=== PATIENT | male | born 1985 | race Caucasian/White ===

== ENCOUNTER 2017-12-15 12:37 | Emergency (ER) | payer OTHER, SELFPAY ==
--- NOTE | 2017-12-15 12:37 | DT_ITS ---
This patient was seen during an EMR downtime December 08, 2017 - December 15, 2017. This patient may have a combination of paper and electronic documentation or all paper documentation. All documentation is viewable within the e-chart portion of [facility] for each patient visit.
[2017-12-15 12:38] VITALS: BP 115/76; PULSE 47; RESP 16; TEMP 36.3; O2SAT 98; BMI 25.8
--- NOTE | 2017-12-15 13:12 | ED.VIS.GEN ---
History of Present Illness Chief Complaint: Lower Extremity Injury Informant: Patient Onset: Weeks - 1 Context: Gradual Onset - walking about 3 miles Timing: Continuous Quality: sore Location: Left knee Current Severity: Moderate Maximum Severity: Moderate Worsened by: Walking, end of a work shift where he is on his feet and walking a lot Relieved by: Rest Associated Symptoms: None Narrative: Patient states he had a vehicle breakdown and had to walk about 3 miles, his knee started bothering him during that, gradually worsening by the end of it. He has been using a soft knee brace over his left knee since then, and went hiking yesterday, exacerbating the pain. Prior similar symptoms: No Past Medical History - Allergies and Home Meds Allergies/Adverse Reactions: Allergies No Known Allergies Allergy (Verified 08/31/16 20:58) Primary Care Physician: Care Physician,No Primary [Primary Care Provider] - Past Medical History: None Surgical History: no surgical history Smoking Status: Never smoker Review of Systems Musculoskeletal: Reports: Extremity Pain - Left knee. Denies: Myalgias, Back pain, Swelling Neurological: Denies: Weakness, Parasthesia, Numbness Physical Exam Vital Signs/Narrative: Vital Signs Temp Pulse Resp BP Pulse Ox 12/15/17 12:38 97.4 F L 47 L 16 115/76 98 General: Well nourished, Well developed, - - Well-appearing, NAD Head: Normocephalic, Atraumatic Extremities: Tenderness - At left plica synovialis, medial to the left patella. No bony knee tenderness, - - Full range of motion left knee. No effusion. All compartments soft left lower extremity. No significant quadriceps ligament or tendon tenderness. Extensor mechanism intact. All ligaments are stable without pain on stressing, negative anterior and posterior drawers. Nontender laterally, nontender at the pes anserines. Neurological: Alert, Oriented x3, Cranial nerves II-XII grossly intact, Normal Strength, Normal Sensation, Normal Gait Psychological: Normal affect Diagnostic/Tx/Re-eval - Medical Decision Making Most consistent with plica synovialis syndrome. Certainly could be a component of patellofemoral syndrome as well, however treatment is the same. Discussed the initial recommendation of rest, NSAID, ice as needed. He may need physical therapy to help strengthen quadriceps muscles if that does not help. He does not have a PCP so he was referred to one in case he needs referred to physical therapy. He is comfortable with this plan and ask for ibuprofen as a liquid because he is not good at swallowing pills. ED Disposition - Plan for ED Patient: Disposition: Home or Assisted Living Chief Complaint: Lower Extremity Injury Instructions: Common Kneecap (Patella) Problems Referrals: Selina Monk MD [COURTESY STAFF PHYSICIAN] - 1-2 Weeks Additional Instructions: Ibuprofen up to 600 mg every 8 hours as needed. Apply ice to affected area for 20 minutes at a time when resting.
[2017-12-15] MEDS: Ibuprofen 100 MG/5 ML UDC 500 MG PO (13:46)
[2017-12-15 13:50] VITALS: BP 115/76; PULSE 54; RESP 18
== END 2017-12-15 13:56 | disposition home or self-care (01) ==
LOC: ED 13:41
PROVIDERS: Emergency Provider Emergency Medicine
DX: S89.92XA Unspecified injury of left lower leg, initial encounter (principal); X58.XXXA Exposure to other specified factors, initial encounter; Y93.01 Activity, walking, marching and hiking; Y92.89 Other specified places as the place of occurrence of the external cause; Y99.8 Other external cause status
CPT/HCPCS: 99283

== ENCOUNTER 2018-03-31 13:58 | Emergency (ER) | payer OTHER, SELFPAY ==
[2018-03-31 13:59] VITALS: BP 129/85; PULSE 115; RESP 12; TEMP 36.2; O2SAT 99; BMI 22.8
--- NOTE | 2018-03-31 14:08 | ED.VISSUMM ---
- ER Visit Summary Date of Service: 03/31/18 Chief Complaint: Left knee pain History of Present Illness: The patient is a 32 M who has left knee pain. He has had it for 6 months. He states it started while walking to work. Ever since then it has been hurting. He states that it hurts mostly on the medial part of the left knee. He was seen previously here for it had no x-rays performed. He was told to do exercises. He has been doing Tylenol and ice as needed. Physical Examination: Signs reviewed. Left knee exam reveals mildly tenderness on the medial left knee. He has full range of motion without any significant pain. No ligamentous laxity. He has 2+ distal pulses. No skin changes Test Results: Left knee x-ray per my interpretation reveals no acute findings Emergency Department Course and Treatment: Patient will be treated with NSAIDs at home. He requests liquids as he cannot swallow pills. I will give him orthopedic follow-up Treatment Plan: [] Disposition: Discharge Impression: Left knee pain This note was generated with [employer] dictation software. It may contain incorrect words, spelling, and punctuation that were not noted in review of the chart prior to signing ED Disposition - Plan for ED Patient: Chief Complaint: Lower Extremity Injury Referrals: Care Physician,No Primary [Primary Care Provider] -
--- NOTE | 2018-03-31 14:18 | RAD_ITS ---
STUDY: X-RAY - LEFT KNEE REASON FOR EXAM: Male, 32 years old. No known injury. Anterior and medial knee pain. TECHNIQUE: 3 view(s) of the knee. COMPARISON: None. FINDINGS: Normal visualized distal femur. Normal visualized proximal tibia and fibula. Normal proximal tibiofibular articulation. Normal medial femorotibial compartment. Normal lateral femorotibial compartment. Normal patellofemoral articulation. The soft tissue structures are unremarkable. RAD/Knee 3 Views IMPRESSION: Normal x-ray examination of the knee. Electronically Signed: Connor Parker MD at 14:35 EDT Tel [phone], Service support ,
--- NOTE | 2018-03-31 14:29 | ED.DEP ---
ED Disposition - Plan for ED Patient: Disposition: Home or Assisted Living Chief Complaint: Lower Extremity Injury Instructions: ED Knee Pain [facility] Prescriptions: Naproxen [Naprosyn] 500 mg PO BID #400 ml Referrals: Care Physician,No Primary [Primary Care Provider] - Tal Baldwin MD [STAFF PHYSICIAN] -
[2018-03-31 14:40] VITALS: BP 119/71; PULSE 91; RESP 16; O2SAT 100
== END 2018-03-31 14:41 | disposition home or self-care (01) ==
PROVIDERS: Emergency Provider Emergency Medicine
DX: M25.562 Pain in left knee (principal)
CPT/HCPCS: 73562; 99282

== ENCOUNTER 2018-08-17 10:02 | Emergency (ER) | payer OTHER, SELFPAY ==
[2018-08-17 10:04] VITALS: BP 119/75; PULSE 83; RESP 16; TEMP 36.4; O2SAT 99; BMI 24.2
--- NOTE | 2018-08-17 10:16 | ED.VISSUMM ---
- ER Visit Summary Date of Service: 08/17/18 Chief Complaint: Left knee pain History of Present Illness: The patient is a 33 M who presents with left knee pain that has been intermittent for the past 10 months. Patient states the pain became worse yesterday. Patient describes the pain is constant aching. Patient states the pain is worse with certain movements. Patient admits to some tingling in his left knee. Patient denies any weakness. Patient states his knee feels like it might give out however. Patient denies any specific trauma or injury. Patient has been seen here in the past for this and had x-rays which showed some mild arthritic changes. Patient denies any recent trauma or specific injury. Patient was given a prescription for Naprosyn the last time he was here however he states he was unable to afford this. Patient states he has difficulty swallowing pills and was given prescription for liquid Naprosyn. Physical Examination: Vital signs are stable. Patient is afebrile. Patient is in no acute distress. Musculoskeletal exam reveals tenderness over the left knee. There is no effusion. There is no deformity. There is no bony crepitance or step-off noted. Range of motion was limited in flexion of the left knee from 0 degrees to 90 degrees. There is no laxity appreciated. Varus and valgus stress test were negative. Lockman's test was negative. Posterior drawer was negative. There is no calf tenderness. Posterior tibial pulses are equal bilaterally. Sensation was intact to light touch bilaterally in the lower extremities. The remaining physical exam is within normal limits. Emergency Department Course and Treatment: Patient was given a dose of ibuprofen here. Patient was given a prescription for meloxicam. Patient was instructed to ice and elevate the left knee. Patient was instructed to follow-up with his primary care physician in 5-7 days. Patient was also advised that he may need to follow-up with an orthopedic surgeon. Patient understood and was agreeable with the plan. All questions were answered. Disposition: Discharge home Impression: Left knee pain This note was generated with [employer] dictation software. It may contain incorrect words, spelling, and punctuation that were not noted in review of the chart prior to signing ED Disposition - Plan for ED Patient: Disposition: Home or Assisted Living Instructions: ED Knee Pain [facility]O Prescriptions: Meloxicam 15 mg PO DAILY PRN PRN #20 tab PRN Reason: Pain Referrals: Care Physician,No Primary [Primary Care Provider] -
[2018-08-17] MEDS: Ibuprofen 100 MG/5 ML UDC 800 MG PO (10:36)
[2018-08-17 10:53] VITALS: RESP 14
== END 2018-08-17 10:53 | disposition home or self-care (01) ==
LOC: ED 10:25
PROVIDERS: Emergency Provider Emergency Medicine
DX: M25.562 Pain in left knee (principal)
CPT/HCPCS: 99283

== ENCOUNTER 2021-03-25 06:01 | Emergency (ER) | payer SELFPAY ==
[2021-03-25 06:02] VITALS: BP 130/79; PULSE 78; RESP 15; TEMP 36.3; O2SAT 97; BMI 27.6
--- NOTE | 2021-03-25 06:21 | ED.VIS.LOWEX ---
HPI History of Present Illness HPI Narrative: Patient presents with left knee pain that has been getting worse over the past 4 days. Patient states the pain began suddenly. Patient states he was stretching when he felt a pop in his left knee. Patient states it has been constant since that time. Patient states the pain is sharp and throbbing. Patient states the pain is worse with flexion and extension. Patient denies any paresthesias or weakness. Patient denies any other injuries. Chief Complaint: Lower Extremity Injury Informant: patient Onset/Context/Timing Onset: Days (4) Context: Sudden Onset Timing: Continuous Quality of Pain: Sharp and Throbbing Location: Left knee Worsened by: Flexion, extension Relieved by: Nothing Associated Symptoms Associated Symptoms: Negative for Parasthesia and Weakness PFSH PFSH no medical history Home Medications NK 08/17/18 [History Last Taken Unknown] Allergy/AdvReac Type Severity Reaction Status Date / Time No Known Allergies Allergy Verified 03/31/18 13:58 no significant family history no surgical history Social History Smoking Status: Current some day smoker tobacco type: e-cigarettes ROS ROS ED Constitutional Constitutional ED: Denies chills or fever(s) Eyes Eyes: Denies blurry vision or change in vision ENT ENT ED: Denies rhinorrhea or sore throat Cardiovascular Cardiovascular: Denies chest pain or palpitations Respiratory/Chest Respiratory/Chest: Denies cough or dyspnea Gastrointestinal Gastrointestinal: Denies nausea or vomiting Genitourinary Genitourinary ED: Denies dysuria or hematuria Musculoskeletal Musculoskeletal: Denies back pain or neck pain Integumentary Denies abscess or rash Neurologic Neurologic: Denies headache(s) or weakness Allergic/Immunologic Allergic/Immunologic ED: Denies mouth swelling or urticaria EXAM Physical Exam Const Vital Signs: 03/25/21 06:02 Temperature 97.3 F L Temperature Source Oral Pulse Rate 78 Respiratory Rate 15 Blood Pressure 130/79 H Blood Pressure Mean 96 Pulse Ox 97 Oxygen Delivery Method Room Air Positive well nourished and well developed General Appearance ED: well developed HEENT Reports moist mucous membranes Neck full ROM Extremity Extremity Narrative: There is tenderness over the anterior aspect of the left knee. There is some mild tenderness along the joint line. There is minimal effusion. Range of motion was limited in complete flexion and complete extension secondary to pain. There is no bony crepitance or step-off. There is no laxity appreciated. Varus and valgus stress test were negative. Kimberli's test was negative. Neuro oriented x3, CN's II-XII intact bilaterally, moves all extremities and no sensory deficits noted Sensorium / Orientation: alert Motor Exam: strength 5/5 throughout Psych mental status grossly normal MDM MDM MDM Narrative Medical decision making narrative: X-rays of the left knee were obtained. There are 4 views. On my interpretation, there is no acute fracture. There is no effusion noted. There is no soft tissue swelling noted. Radiologist also interpreted the x-rays and agrees. Patient was given a dose of [place] here. Patient was instructed to ice and elevate the left knee. Patient was instructed to take ibuprofen or Naprosyn as needed for pain. Patient was instructed to follow-up with his primary care physician in 3 to 5 days. Patient understood and was agreeable with the plan. All questions were answered. Radiography Diagnostic Testing: Radiology Impression Knee X-Ray 03/25/21 06:51 IMPRESSION: There are no acute findings. No change from Knee with report dated 03/31/2018 2:34 PM. Electronically Signed: Jorden Barkley MD at 7:24 EDT , Service support , Discharge Plan Triage Chief Complaint: Lower Extremity Injury ED Provider: Dario Stovall Dx/Rx/DC Orders Clinical Impression: Acute pain of left knee Instructions: ED Knee Pain of Uncertain Cause Prescriptions: No Action NK RF: 0 Primary Care Provider: Care Physician,No Primary Referrals: Care Physician,No Primary [Primary Care Provider] - 3-5 Days Disposition Disposition: Home, Self Care
--- NOTE | 2021-03-25 06:51 | RAD_ITS ---
STUDY: XR Knee Complete 4 Views or More 03/25/2021 7:23 AM REASON FOR EXAM: Male, 35 years old. PAIN TECHNIQUE: XR Knee Complete 4 Views or More COMPARISON: 03/31/2018 2:34 PM. FINDINGS: Normal visualized distal femur. Normal visualized proximal tibia and fibula. Normal proximal tibiofibular articulation. Normal medial femorotibial compartment. Normal lateral femorotibial compartment. Normal patellofemoral articulation. The soft tissue structures are unremarkable. RAD/Knee 4 or More Views IMPRESSION: There are no acute findings. No change from Knee with report dated 03/31/2018 2:34 PM. Electronically Signed: Jorden Barkley MD at 7:24 EDT , Service support ,
[2021-03-25] MEDS: HYDROcodone Bitartrate/Apap 5/325 Tablet PO (06:58)
[2021-03-25 08:08] VITALS: RESP 18
== END 2021-03-25 08:09 | disposition home or self-care (01) ==
PROVIDERS: Emergency Provider Emergency Medicine
DX: M25.562 Pain in left knee (principal); F17.290 Nicotine dependence, other tobacco product, uncomplicated
CPT/HCPCS: 73564; 99282

== ENCOUNTER 2021-08-09 19:08 | Emergency (ER) | payer SELFPAY ==
[2021-08-09 19:08] VITALS: BP 124/74; PULSE 108; RESP 18; TEMP 36.7; O2SAT 98; BMI 26.6
--- NOTE | 2021-08-09 19:31 | EX.ED.VIS.UR ---
HPI HPI - URI History of Present Illness Chief Complaint: Ear Problem Informant: patient Onset/Context/Timing Onset: Days (3) Context: Gradual Onset Timing: Continuous Quality: Pressure Location: Right ear Associated Symptoms Associated Symptoms: Negative for Nasal Congestion, Headache, Sinus Pressure, Nausea, Vomiting, Diarrhea, Shortness of Breath, Chest Pain, Nonproductive cough, Hemoptysis and Productive Cough Narrative Narrative: Patient presents with right ear pain that has been constant for the past 3 days. Patient states it is gradually getting worse. Patient describes as a pressure in his right ear. Patient states it radiates into his right molar and jaw area. Patient states he has been using cold compresses which have been helping. Patient states nothing makes it worse. Patient denies any fevers or chills. Patient denies any sore throat or rhinorrhea. Patient denies any shortness of breath or cough. ROS ROS ED Constitutional Constitutional ED: Denies chills or fever(s) Eyes Eyes: Denies blurry vision or change in vision ENT ENT ED: Reports ear pain right; Denies rhinorrhea or sore throat Cardiovascular Cardiovascular: Denies chest pain or palpitations Respiratory/Chest Respiratory/Chest: Denies cough or dyspnea Gastrointestinal Gastrointestinal: Denies nausea or vomiting Genitourinary Genitourinary ED: Denies dysuria or hematuria Musculoskeletal Musculoskeletal: Denies back pain or neck pain Integumentary Denies abscess or rash Neurologic Neurologic: Denies headache(s) or weakness Allergic/Immunologic Allergic/Immunologic ED: Denies mouth swelling or urticaria PFSH PFSH Medical History no medical history no medical history Home Medications amoxicillin 500 mg PO TID #30 tab 08/09/21 [Rx Last Taken Unknown] Allergy/AdvReac Type Severity Reaction Status Date / Time No Known Allergies Allergy Verified 08/09/21 19:10 Surgical History no surgical history no surgical history Social History Smoking Status: Never smoker EXAM Physical Exam Const Vital Signs: 08/09/21 19:08 Temperature 98.0 F Temperature Source Temporal Pulse Rate 108 H Respiratory Rate 18 Blood Pressure 124/74 H Blood Pressure Mean 90 Pulse Ox 98 Oxygen Delivery Method Room Air Positive well nourished and well developed General Appearance ED: well developed HEENT Reports moist mucous membranes External Ear: external ears normal External Auditory Canal: EAC's normal Tympanic Membrane ED: Yes TM normal on the left and TM abnormal effusion Positive for purulent and erythematous (Mild) Throat: posterior oropharynx normal Eyes PERRL and EOMs intact bilaterally Neck supple and no JVD Neuro oriented x3, CN's II-XII intact bilaterally and no sensory deficits noted Sensorium / Orientation: alert Motor Exam: strength 5/5 throughout Psych mental status grossly normal MDM MDM MDM Narrative Medical decision making narrative: Patient was advised that this is an otitis media of his right ear. Patient was given a dose of amoxicillin here. Patient was given a dose of ibuprofen here. Patient was given a prescription for amoxicillin. Patient was instructed to continue Tylenol and ibuprofen as needed for pain or fever. Patient was instructed to return if worse in any way. Patient understood and was agreeable with the plan. All questions were answered. Discharge Plan Triage Chief Complaint: Ear Problem ED Provider: Dario Stovall Dx/Rx/DC Orders Clinical Impression: Acute right otitis media Instructions: ED Otitis Media Antibiotic ... Prescriptions: New amoxicillin 500 MG tablet 500 mg PO TID Qty: 30 RF: 0 Primary Care Provider: Care Physician,No Primary Referrals: Ismael Vallejo MD [NON-STAFF] - 5-7 Days Care Physician,No Primary [Primary Care Provider] - Disposition Disposition: Home, Self Care
[2021-08-09] MEDS: Amoxicillin 200MG/5 ML Susp PO.SYRINGE 500 MG PO (20:05)
[2021-08-09] MEDS: Ibuprofen 100 MG/5 ML UDC 400 MG PO (20:05)
== END 2021-08-09 20:08 | disposition home or self-care (01) ==
PROVIDERS: Emergency Provider Emergency Medicine; Visit Provider Emergency Medicine
DX: H66.91 Otitis media, unspecified, right ear (principal)
CPT/HCPCS: 99283

== ENCOUNTER 2021-09-11 09:46 | Emergency (ER) | payer SELFPAY ==
[2021-09-11 09:47] VITALS: BP 122/82; PULSE 85; RESP 18; TEMP 36.6; O2SAT 97; BMI 26.7
--- NOTE | 2021-09-11 10:18 | EX.ED.VIS.UR ---
HPI HPI - URI History of Present Illness Chief Complaint: Ear Problem Narrative Narrative: Patient presents with right ear pain that has had for the last few days. He relates history that he was seen in the emergency department for right ear pain 1 to 2 months ago and was placed on amoxicillin. His symptoms resolved. However, over the last few days he noticed that he has ear pressure as if there is fluid behind his eardrum again. He denies any fevers or chills. No nausea or vomiting. No neck pain. He denies loss of hearing but feels the pressure in his right ear. He is a non-smoker and denies being around secondhand smoke. ROS ROS ED ROS Narrative Constitutional: No fever, no chills. HEENT: No sore throat. No neck pain. No loss of vision. No rhinorrhea. Right ear pain and pressure. No loss of hearing. Cardiovascular: No chest pain. No palpitations. No pedal edema. Respiratory: No cough, no shortness of breath. Abdominal: No abdominal pain. No nausea. No vomiting. Genitourinary: No dysuria. No hematuria. Musculoskeletal: No myalgias. No arthralgias. Neurologic: No headaches. No dizziness. No lightheadedness. Skin: No rash. No change in color. Psychiatric: No depression. No anxiety. PFSH PFS Home Medications NK 09/11/21 [History Last Taken Unknown] Allergy/AdvReac Type Severity Reaction Status Date / Time No Known Allergies Allergy Verified 09/11/21 09:47 Social History Smoking Status: Never smoker EXAM Physical Exam Narrative Exam Narrative: Afebrile. Vital signs noted. HEENT: Normocephalic. Atraumatic. PERRL, EOMI. Neck soft and supple. No point tenderness or step off. Neck soft and supple without meningismus. No mastoid tenderness or erythema. No pain with movement of tragus. Normal ear canal. No noted discharge. Inspection of the right TM does show a serous otitis media with dullness but no overt erythema. Cardiovascular: Regular rate and rhythm. No murmurs, rubs, or gallops appreciated. Respiratory: No tachypnea. Lungs clear to auscultation bilaterally. Gastrointestinal: Abdomen soft, nontender, with normoactive bowel sounds. No rebound or guarding. Neurological: Awake. Alert. Nonfocal, nonlateralizing. Skin: No rash. Normal color. No pallor. Musculoskeletal: No pedal edema. Full range of motion extremities. Const Vital Signs: 09/11/21 09:47 Temperature 97.9 F Temperature Source Temporal Pulse Rate 85 Respiratory Rate 18 Blood Pressure 122/82 H Blood Pressure Mean 95 Pulse Ox 97 Oxygen Delivery Method Room Air MDM MDM MDM Narrative Medical decision making narrative: I had a lengthy discussion with the patient. I do not feel antibiotics are indicated again. He is showing no other signs of infection. I do feel it is more of a serous otitis media. He can use [id number] nasal steroids and decongestants, and gentle insufflation. He was referred to otolaryngology. He was also referred to a primary care physician. I feel he can be discharged safely home with follow-up. Return instructions were reviewed. Disposition is discharged home in stable condition. Discharge Plan Triage Chief Complaint: Ear Problem ED Provider: Cam Brody Dx/Rx/DC Orders Clinical Impression: Acute serous otitis media of right ear, Otalgia Instructions: ED Earache Without Infection (Adult) Prescriptions: No Action NK RF: 0 Primary Care Provider: Care Physician,No Primary Referrals: Pito,Tamika, DO [NON-STAFF] - 1 Week if not improving Loco Castillo MD [STAFF PHYSICIAN] - As soon as possible Care Physician,No Primary [Primary Care Provider] - Disposition Disposition: Home, Self Care
== END 2021-09-11 10:33 | disposition home or self-care (01) ==
LOC: ED 10:31
PROVIDERS: Emergency Provider Emergency Medicine; Visit Provider Emergency Medicine
DX: H65.01 Acute serous otitis media, right ear (principal)
CPT/HCPCS: 99282

== ENCOUNTER 2022-10-14 19:11 | Emergency (ER) | payer SELFPAY ==
[2022-10-14 19:12] VITALS: BP 129/87; PULSE 79; RESP 18; TEMP 36.3; O2SAT 98
== END 2022-10-14 20:08 | disposition left against medical advice (07) ==
LOC: ED 20:38
DX: Z53.21 Procedure and treatment not carried out due to patient leaving prior to being seen by health care provider (principal)

== ENCOUNTER 2022-10-15 20:25 | Emergency (ER) | payer OTHER, SELFPAY ==
[2022-10-15 20:26] VITALS: BP 124/75; PULSE 76; RESP 16; TEMP 36.7; O2SAT 97; BMI 25.9
--- NOTE | 2022-10-15 20:49 | EX.ED.DYSGE1 ---
HPI <OTIS Carter - Last Filed: 10/15/22 21:00> History of Present Illness Chief Complaint: Ear Problem Narrative Narrative: Patient is a 37-year-old male with no significant ankle history presents to the emergency department with right-sided upper jaw pain. Patient states he started having pain in his ear, however today, the pain was less in his ear and more in his jaw especially around one of his teeth of a premolar in the right upper jaw. Patient states that the pain is localized there at this time. He also would like his ears looked out. Patient states he did have some tinnitus yesterday however today that has decreased. Patient denies any fever or chills. Patient denies any trismus. PFSH <OTIS Carter - Last Filed: 10/15/22 21:00> PFSH Home Medications amoxicillin 250 mg/5 mL oral suspension 500 mg (10 mL) PO TID 7 days #210 mL 10/15/22 [Rx Last Taken Unknown] Allergy/AdvReac Type Severity Reaction Status Date / Time tomato AdvReac Abd Verified 10/15/22 20:26 cramps/diarrhea Social History Smoking Status: Never smoker ROS <OTIS Carter - Last Filed: 10/15/22 21:00> ROS ED ROS Narrative Constitutional: Negative for fever, chills, weight loss, weakness Eyes: Negative for vision loss, vision change, double vision ENT: Negative for any sore throat, ear pain, congestion.. Patient has pain to the right premolar on the upper jaw. Cardiovascular: Negative for any chest pain, tightness, palpitations Respiratory: Negative for any cough, sputum production, hemoptysis, dyspnea, dyspnea on exertion, orthopnea Gastrointestinal: Negative for any abdominal pain, nausea, vomiting, diarrhea, constipation, blood in stool, blood in vomit : Negative for any urinary frequency, dysuria, retention, blood in urine Muscle skeletal: Negative for any muscle joint pain, stiffness, myalgias, arthralgias, neck pain, back pain Neurological: Negative for any headache, syncope, numbness or tingling, dizziness Skin: Negative for any rashes, lumps, itching, abrasions, lacerations Psychiatric: Negative for any depression, anxiety, stress, suicidal ideation, homicidal ideation Hematologic: Negative for any easy bruising, excessive bruising, easy bleeding Allergies: Negative for any eczema, hives, rash EXAM <OTIS Carter - Last Filed: 10/15/22 21:00> Physical Exam Narrative Exam Narrative: Vital signs reviewed. HEET: Head normocephalic atraumatic, TMs clear bilaterally. Posterior pharynx is clear, moist mucous membranes. Nares clear bilaterally. Patient does have poor dentition, has multiple dental caries. Patient does have pain on palpation to the right upper premolar. There is root exposure. There is no fracture of the tooth. Patient does have pain on palpation. There is no evidence of deep tissue infection, no abscess formation Neck: Supple with no lymphadenopathy or tenderness. No signs of meningismus, negative jolt sign. Cardiac: Regular rate and rhythm no murmurs gallops or rubs, equal peripheral pulses bilaterally. Respiratory: Lungs clear to auscultation bilaterally. No chest tenderness. Abdomen: Soft, nontender, nondistended. No abdominal bruit or pulsatile masses. No hepatosplenomegaly Extremities: No peripheral edema, no signs of gross trauma or deformity. Active full range of motion of all extremities. Neuro: Cranial nerves II through XII intact, no focal neurological deficits. Skin: Clean dry and intact with no rash, purpura, petechiae, vesicles or pustules. Backs/flank: No CVA tenderness, no midline spinal tenderness, no deformity. Psych: Normal mood and affect. No SI, HI or acute psychosis. Const Vital Signs: 10/15/22 20:26 Temperature 98.1 F Temperature Source Temporal Pulse Rate 76 Respiratory Rate 16 Blood Pressure 124/75 H Blood Pressure Mean 91 Pulse Ox 97 Oxygen Delivery Method Room Air Positive well nourished and well developed General Appearance ED: well developed <Dr. Guru Mullins MD - Last Filed: 10/15/22 21:49> Physical Exam Const Vital Signs: 10/15/22 20:26 Temperature 98.1 F Temperature Source Temporal Pulse Rate 76 Respiratory Rate 16 Blood Pressure 124/75 H Blood Pressure Mean 91 Pulse Ox 97 Oxygen Delivery Method Room Air MDM <OTIS Carter - Last Filed: 10/15/22 21:00> MDM Treatment and Re-Evaluation :: Patient appears generally well, patient appears nontoxic, vital signs are stable. Patient presents to the emergency department with complaints of ear pain that radiates to his right jaw. Patient's ENT exam was unremarkable, patient did have dental caries which is likely the cause of his pain. Patient be diagnosed with dental caries, dental abscess. Patiently placed on amoxicillin liquid secondary to patient unable to swallow pills. Patient will use ibuprofen, Tylenol suspension at home. Patient will be given a dental referral list. He currently does have insurance, patient states he will follow-up. He was given return precaution. <Dr. Guru Mullins MD - Last Filed: 10/15/22 21:49> [facility] MDM Narrative Medical decision making narrative: I have personally performed a face to face assessment of the patient and have reviewed the HIA Note. I performed a substantive portion of the visit including all aspects of the following. My jensen findings include: History is remarkable for right ear pain. Patient was unaware that he had facial swelling. He does have poor dentition. He denies fever, chills night sweats. Denies rheumatic fever, heart murmur, mitral prolapse, SBE or being immune suppressed. He denies IV drug use. He denies fever or chills. He denies difficulty opening closing his mouth completely. He denies change in voice. Nuys difficulty swallowing liquids or solids. He denies sensitivity to cold or hot liquids. Exam is multiple dental caries extending to the dentin and pulp. Tooth in question is tooth #4. There is no evidence of periodontal abscess. There is tenderness to tapping the tooth. There is facial swelling with no evidence of facial cellulitis. He has mild tenderness over the right maxillary sinus. Trachea is midline. There is no dysphonia. Heart is regular. There is no murmur, gallop or rub. Rate is normal. Lungs are clear to auscultation. Medical Decision Making patient has a dental abscess he was treated with amoxicillin liquid since he cannot swallow pills. Other additions or changes: Given a dental list for him to call for follow-up. Discharge Plan Triage Chief Complaint: Ear Problem ED Midlevel Provider: Adair Hernández ED Provider: Guru Mullins Dx/Rx/DC Orders Clinical Impression: Abscess, dental, Dental caries, Dental caries extending into dentine, Dental caries extending into pulp, Gingivitis, Chronic periodontal disease Instructions: ED Dental Cavity Prescriptions: New amoxicillin 250 mg/5 mL suspension for reconstitution 500 mg PO TID 7 Days Qty: 210 0RF Stand Alone Forms: ED Work / School Excuse Primary Care Provider: Care Physician,No Primary Referrals: Care Physician,No Primary [Primary Care Provider] - Activity Restrictions/Additional Instructions: Please follow-up with a dental referral list Disposition Disposition: Home, Self Care Discharge Date/Time: 10/15/22 21:24
[2022-10-15] MEDS: Amoxicillin 200MG/5 ML Susp PO.SYRINGE 500 MG PO (21:21)
== END 2022-10-15 21:24 | disposition home or self-care (01) ==
LOC: ED 21:10
PROVIDERS: Emergency Provider Emergency Medicine; Visit Provider Emergency Medicine
DX: K04.7 Periapical abscess without sinus (principal); K02.9 Dental caries, unspecified; K05.10 Chronic gingivitis, plaque induced
CPT/HCPCS: 99283

== ENCOUNTER 2022-12-31 07:41 | Emergency (ER) | payer OTHER, SELFPAY ==
[2022-12-31 07:42] VITALS: BP 117/82; PULSE 77; RESP 14; TEMP 36.6; O2SAT 98; BMI 26.6
--- NOTE | 2022-12-31 08:33 | EX.ED.VIS.UR ---
HPI HPI - URI History of Present Illness Chief Complaint: Ear Problem Informant: patient Onset/Context/Timing Onset: Days (5) Context: Gradual Onset Timing: Continuous Quality: Discomfort Location: Right ear Worsened by: - (Nothing) Relieved by: - (Nothing) Associated Symptoms Associated Symptoms: Positive for Nasal Congestion, Headache, Sinus Pressure and Shortness of Breath; Negative for Myalgias, Nausea, Vomiting, Diarrhea, Chest Pain, Nonproductive cough, Hemoptysis or Productive Cough Narrative Narrative: Patient presents with right ear pain and sinus congestion that has been getting worse over the last 5 days. Patient states it is gradually gotten worse. Patient describes it as a discomfort to his right ear. Patient admits to some nasal and sinus congestion. Patient admits to some sinus pressure over the frontal area. Patient states it started with a headache 5 days ago. Patient admits to some slight shortness of breath. Patient denies any chest pain. Patient denies any cough. Patient denies any nausea, vomiting, or diarrhea. Patient states he was using [id number] Flonase but states that made it somewhat worse immediately after he used it. ROS ROS ED Constitutional Constitutional ED: Reports chills and subjective; Denies fever(s) Eyes Eyes: Denies blurry vision or change in vision ENT ENT ED: Reports ear pain right; Denies rhinorrhea or sore throat Cardiovascular Cardiovascular: Denies chest pain or palpitations Respiratory/Chest Respiratory/Chest: Reports dyspnea; Denies cough Gastrointestinal Gastrointestinal: Denies nausea or vomiting Genitourinary Genitourinary ED: Denies dysuria or hematuria Musculoskeletal Musculoskeletal: Denies back pain or neck pain Integumentary Denies abscess or rash Neurologic Neurologic: Reports headache(s); Denies weakness Allergic/Immunologic Allergic/Immunologic ED: Denies mouth swelling or urticaria PFSH PFSH Medical History no medical history no medical history Home Medications amoxicillin 250 mg/5 mL oral suspension 500 mg (10 mL) PO TID 7 days #210 mL 10/15/22 [Rx Last Taken Unknown] oxymetazoline 0.05 % nasal spray (Afrin Sinus (oxymetazoline)) 2 spray intranasal Q12H PRN nasal congestion 3 days #15 mL 12/31/22 [Rx Last Taken Unknown] Allergy/AdvReac Type Severity Reaction Status Date / Time tomato AdvReac Abd Verified 12/31/22 07:44 cramps/diarrhea Surgical History no surgical history no surgical history Social History Smoking Status: Never smoker EXAM Physical Exam Const Vital Signs: 12/31/22 07:42 Temperature 98 F Temperature Source Temporal Pulse Rate 77 Respiratory Rate 14 Blood Pressure 117/82 H Blood Pressure Mean 93 Pulse Ox 98 Oxygen Delivery Method Room Air Positive well nourished and well developed General Appearance ED: well developed and NAD HEENT Reports moist mucous membranes HEENT Narrative: There is a moderate effusion behind the right tympanic membrane. The left tympanic membrane has a slight effusion. There is no erythema of the tympanic membranes bilaterally. normocephalic and atraumatic Face and Sinus: Negative for sinus tenderness or facial tenderness Throat: posterior oropharynx normal Neck no lymphadenopathy, supple, no meningeal signs and no JVD Resp normal respiratory effort and clear to auscultation bilaterally Cardio Rate: regular rate Rhythm: regular rhythm Neuro oriented x3, CN's II-XII intact bilaterally and no sensory deficits noted Sensorium / Orientation: alert Motor Exam: strength 5/5 throughout Psych mental status grossly normal MDM MDM MDM Narrative Medical decision making narrative: Patient was advised that this is most likely a viral upper respiratory infection causing sinus congestion and a right middle ear effusion. Patient was advised that antibiotics are not necessary at this time. Patient was instructed to continue his Flonase nasal spray daily. Patient was given a prescription for Afrin nasal spray to take as needed for 3 days. Patient was given referral for primary care physician for follow-up care in 5 to 7 days. Patient was given a note for work for today. Patient understood and was agreeable with the plan. All questions were answered. Discharge Plan Triage Chief Complaint: Ear Problem ED Provider: Dario Stovall Dx/Rx/DC Orders Clinical Impression: Upper respiratory infection, Sinus congestion Instructions: ED URI, Viral, No Abx (Adult) Prescriptions: New oxymetazoline [Afrin Sinus (oxymetazoline)] 0.05 % spray,non-aerosol 2 spray intranasal Q12H PRN (Reason: nasal congestion) 3 Days Qty: 15 0RF No Action amoxicillin 250 mg/5 mL suspension for reconstitution 500 mg PO TID 7 Days Qty: 210 0RF Stand Alone Forms: ED Work / School Excuse Primary Care Provider: Care Physician,Azul Primary Referrals: Irving Reis MD [Med Staff - Access Control Specialist] - 5-7 Days Care Physician,No Primary [Primary Care Provider] - Disposition Disposition: Home, Self Care Discharge Date/Time: 12/31/22 08:37
--- NOTE | 2022-12-31 08:34 | ED.RN ---
PT WAS VERY UPSET BECAUSE HE DIDN'T GET A WORK NOTE FOR YESTERDAY. STATES HIS WORK HAS A POINT SYSTEM AND HE CALLED OFF YESTERDAY AND CAN NOT GET A POINT IF HE HAS A NOTE. EXPLAINED WE ARE UNABLE TO GIVE A NOTE FOR A DAY HE WAS NOT SEEN. PT STATES THAT IS A POOR SYSTEM. EXPLAINED THAT HE SHOULD BE ABLE TO RETURN TO WORK FROM A MEDICAL STANDPOINT. PT STATES HE IS [employer] AND WORKS IN A [employer] SO WHY WOULD HE WANT TO GO TO WORK. EXPLAINED THAT WAS HIS CALL BUT THAT NOT EVERY ER VISIT RESULTS IN A WORK NOTE.
== END 2022-12-31 08:44 | disposition home or self-care (01) ==
PROVIDERS: Emergency Provider Emergency Medicine; Visit Provider Emergency Medicine
DX: J06.9 Acute upper respiratory infection, unspecified (principal); R09.81 Nasal congestion
CPT/HCPCS: 99282